=== PATIENT | female | born 1935 | race Caucasian/White ===

== ENCOUNTER → 2017-11-09 | Outpatient (CLI) | payer OTHER, BC | LOC: ULTRA 08:16 | DX: I70.90 Unspecified atherosclerosis (principal); R55 Syncope and collapse ==

== ENCOUNTER → 2018-06-14 | Outpatient (CLI) | payer OTHER, BC | LOC: MRI 09:18 | DX: G45.8 Other transient cerebral ischemic attacks and related syndromes (principal); G45.0 Vertebro-basilar artery syndrome; F41.9 Anxiety disorder, unspecified; R53.82 Chronic fatigue, unspecified; R51 Headache ==